=== PATIENT | female | born 1945 | race Hispanic/Latino ===

== ENCOUNTER → 2024-02-08 | Day surgery (SDC) | payer MEDICARE ==
[2024-02-03 11:16] LABS: BASOPHILS # (AUTO) 0.1 (0.0-0.1); BASOPHILS % 0.6 % (0.0-1.0); EOSINOPHILS # (AUTO) 0.1 (0.0-0.4); EOSINOPHILS % 1.3 % (0.0-6.0); HEMATOCRIT 44.3 % (34.2-44.1); HEMOGLOBIN 13.9 g/dL (12.0-16.0); LYMPHOCYTES # (AUTO) 3.7 (1.0-3.2); LYMPHOCYTES % 38.9 % (18.0-39.1); MEAN CORPUSCULAR HEMOGLOBIN 30.2 pg (28-32); MEAN CORPUSCULAR HGB CONC 31.4 g/dL (31-35); MEAN CORPUSCULAR VOLUME 96.1 fL (81-99); MONOCYTES # (AUTO) 0.7 (0.2-0.8); MONOCYTES % 7.3 % (4.4-11.3); NEUTROPHILS # (AUTO) 4.9 (2.1-6.9); NEUTROPHILS % 51.7 % (38.7-80.0); PLATELET COUNT 242 x10e3/uL (140-360); RED BLOOD COUNT 4.61 x10e6/uL (3.6-5.1); RED CELL DISTRIBUTION WIDTH 14.8 % (11.7-14.4); WHITE BLOOD COUNT 9.42 x10e3/uL (4.8-10.8)
[~2024-02-08] MED LIST: ACETAMINOPHEN 1000 MG/100 ML IV ONE; BUPIVACAINE HCL 0.5% INJ 30 ML VIAL INJ ONE; DEXAMETHASONE SOD PHOS INJ 4 MG/ML SDV ONE; DEXMEDETOMIDINE HCL 200 MCG/2 ML VIAL ONE; ETOMIDATE 2 MG/ML 10 ML INJ IV ONE; FAMOTIDINE 20 MG/2 ML VIAL IV ONE; FENTANYL CITRATE/PF 100MCG/2 ML INJ ONE; NEOSTIGMINE 1 MG/ML 10ML VIAL ONE; ONDANSETRON HCL INJ 2MG/ML 2ML 2 MG/ML VIAL ONE; PROPOFOL IV EMULSION 10 MG/ML 20 ML VIAL ONE; SEVOFLURANE INHAL SOLN 250 ML PEN BTL ONE; SODIUM CHLORIDE 0.9% INJ 100 ML BAG ONE
[2024-02-08] MEDS: LACTATED RINGER'S 1,000 ML ONE (06:21)
[2024-02-08 08:24] VITALS: TEMP 98.1
[2024-02-08 09:20] VITALS: BP 136/62; PULSE 57; RESP 18; O2SAT 97
== END | disposition home or self-care (01) ==
LOC: OR 06:04
PROVIDERS: ATTEND Podiatrist Foot & Ankle Surgery
DX: M20.41 Other hammer toe(s) (acquired), right foot (principal); M19.071 Primary osteoarthritis, right ankle and foot; L97.519 Non-pressure chronic ulcer of other part of right foot with unspecified severity; Z98.1 Arthrodesis status; M06.9 Rheumatoid arthritis, unspecified; I10 Essential (primary) hypertension; G89.29 Other chronic pain; Z01.810 Encounter for preprocedural cardiovascular examination; Z01.812 Encounter for preprocedural laboratory examination; Z01.818 Encounter for other preprocedural examination; Z79.899 Other long term (current) drug therapy
CPT/HCPCS: 28820; 28825; 36415; 71046; 85025; 88305; 88311; 93005; J0131; J0690; J1100; J2405; J2704; J2710; J3010; J7050; J7121; 88304